=== PATIENT | male | born 1935 | race Caucasian/White ===

== ENCOUNTER 2016-10-10 23:01 | Inpatient (IN) | payer MEDICARE ==
[2016-10-10] MEDS: Nitroglycerin TAB 0.4 MG* 0.4 MG TAB SL ONE ×2 (23:15→23:38)
[2016-10-10] MEDS ORDERED: Aspirin Low Dose CHEW TAB* 81 MG PO ONE (23:17)
[2016-10-10] MEDS ORDERED: Aspirin Low Dose CHEW TAB* 81 MG ONE (23:17)
[2016-10-10] MEDS ORDERED: Nitroglycerin TAB 0.4 MG* 0.4 MG TAB ONE (23:17)
[2016-10-10] MEDS ORDERED: Heparin for STEMI(*) 5,000 UNITS/ML 1 ML VIAL IV ONE ×2 (23:17)
[2016-10-10] MEDS ORDERED: Heparin(*) 1000 UNIT/ML 10 ML VIAL CATH LAB IV ONE (23:29)
[2016-10-10] MEDS ORDERED: VERAPAMIL 2.5 MG/ML 4 ML VIAL ONE (23:29)
[2016-10-10] MEDS ORDERED: fentaNYL* 50 MCG/ML 2 ML VIAL (100 MCG VIAL) ONE (23:30)
[2016-10-10] MEDS ORDERED: Midazolam* 1 MG/ML 5 ML VIAL (5 MG) ONE (23:30)
[2016-10-10] MEDS ORDERED: Heparin 2 UNITS/ML IVPREMIX* 3,000 ML IV ONE (23:30)
[2016-10-10] MEDS ORDERED: nitroGLYCERIN DRIP* 250 ML ONE (23:30)
[2016-10-10] MEDS ORDERED: Iohexol 350 (CONTRAST) 200 ML MDV IV ONE (23:31)
[2016-10-10] MEDS ORDERED: Al Hydrox/Mg Hydrox/Simet LIQ* 30 ML UDC ONE (23:31)
[2016-10-10] MEDS ORDERED: Lidocaine 1% INJ* 10 MG/ML 30 ML SDV ONE ×2 (23:31→23:49)
[2016-10-10 23:38] LABS: Hematocrit 42 % (42-52); Hemoglobin 14.7 g/dl (14.0-18.0); Mean Corpuscular HGB Conc 35 g/dl (31-36); Mean Corpuscular Hemoglobin 31 pg (27-31); Mean Corpuscular Volume 90 fL (80-94); Mean Platelet Volume 8 um3 (7.4-10.4); Red Blood Count 4.71 10^6/ul (4.0-5.4); Red Cell Distribution Width 13 % (10.5-15); White Blood Count 11.1 10^3/ul (3.5-10.8)
[2016-10-10 23:43] LABS: Albumin 4.3 g/dL (3.2-5.2); BUN/Creatinine Ratio 16.3 (8-20); Calcium 9.3 mg/dL (8.6-10.3); EGFR African American 64.9 (>60); EGFR Non-African American 50.5 (>60); Globulin 3.4 g/dL (2-4); Total Bilirubin 0.6 mg/dL (0.2-1.0); Total Protein 7.7 g/dL (6.4-8.9)
[2016-10-10] MEDS ORDERED: Iodixanol* (CONTRAST) 320 MG/ML 100 ML SDV ONE (23:58)
[2016-10-11 00:01] LABS: Troponin I 16.34 ng/mL (<0.04)
[2016-10-11 00:23] LABS: PCO2 Arterial 31 mmHg (35-45)
[2016-10-11] MEDS ORDERED: Iodixanol* (CONTRAST) 320 MG/ML 100 ML SDV ONE (00:49)
[2016-10-11] MEDS ORDERED: Ticagrelor* 90 MG TAB PO ONE (01:00)
[2016-10-11] MEDS ORDERED: Norepinephrine 16MCG/ML IVPRE* 4,000 MCG/250 ML BAG IV ONE (01:10)
[2016-10-11] MEDS ORDERED: DOPamine 200 MG/250 ML IVPREM* 200 MG/250 ML ML IV ONE (01:10)
[2016-10-11] MEDS ORDERED: Nitroglycerin TAB 0.4 MG* 0.4 MG TAB SL PRN (01:12)
[2016-10-11] MEDS ORDERED: NS 0.9% 1000 ML* 1,000 ML IV SCH (01:15)
[2016-10-11] MEDS ORDERED: Acetaminophen TAB* 325 MG PO PRN (01:17)
[2016-10-11] MEDS ORDERED: Ondansetron INJ* 2 MG/ML VIAL IV PRN (01:17)
[2016-10-11] MEDS: Atorvastatin* 80 MG TAB PO SCH ×2 (01:45→17:07)
[2016-10-11 03:18] LABS: HDL Cholesterol 34.5 mg/dL
[2016-10-11 03:23] LABS: Troponin I 48.41 ng/mL (<0.04)
--- NOTE | 2016-10-11 04:58 | HP ---
HISTORY AND PHYSICAL: DATE OF ADMISSION: 10/10/16. PRIMARY: Cameron Kingsley MD HISTORY OF PRESENT ILLNESS: An 81-year-old male presenting to the ER with anterior ST elevation infarct. He is an excellent historian. He has no previous cardiac history except for an episode of syncope some 20 years ago. Apparently, evaluated by Dr. Guzman. He has hypertension, but takes the medication for it according to his . For the past 24 plus hours, he has had recurring episodes of precordial chest discomfort, which he describes like heartburn, these would typically last up to 30 minutes or somewhat longer and then resolve. He presented to the ER before midnight, a STEMI was called. 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 He is active, does yard work, has no limitation with activity. His reports that he has been having a chronic cough. He denies a history of diabetes, hyperlipidemia, tobacco use. PAST MEDICAL HISTORY: Hypertension, according to his he does not take antihypertensives, per his med summary, he is supposedly on losartan/ hydrochlorothiazide. PREHOSPITAL MEDICATIONS: To be reconciled by nursing staff. ALLERGIES: Penicillin. FAMILY HISTORY: Negative for premature coronary disease. 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 He is . REVIEW OF SYSTEMS: General: He is active. No weight loss, no fever. 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 GI: No history of peptic ulcer disease or bleeding. Circulatory: No claudication. Heme: No history of malignancy or anemia. Remainder all negative. PHYSICAL EXAMINATION VITAL SIGNS: On presentation in the ER, his blood pressure 141/94. He had a transient episode of hypotension into the 60s in the ER. Heart rate 70s to 80s , sinus rhythm. HEENT: Unremarkable without xanthelasma, scleral injection, or jaundice. EOMs grossly normal. Cranial nerves grossly intact. Mucosa moist. NECK: No JVD. Carotids palpable. No bruits. LUNGS: His lungs laterally clear. No rales or wheezes. He was extremely anxious, shaking, perseverating about the details such as early head start director of stents , etc. CARDIAC: Chest wall not tender. [place] not palpable. Normal heart sounds. No gallop, murmur, or rub. ABDOMEN: Soft, nontender. Aorta not palpable. Liver not palpable. Femoral pulses 2+. No bruits. EXTREMITIES: Radial pulses and pedal pulses normal. No cyanosis, clubbing, or edema. NEUROLOGIC: Very anxious. SKIN: Somewhat cool, not diaphoretic. DIAGNOSTIC STUDIES/LAB DATA: EKG at 2308 hours leftward axis, ST elevation in V1 through V5 with QS V1, V2, slight ST elevation in I and aVL consistent with extensive anterolateral ST elevation infarct. White count 11,100, normal hemoglobin and platelet count. Blood gas pH 7.38, PCO2 of 31, PO2 of 80, base deficit -5.8. BMP: Creatinine 1.35 with no prior, GFR 50.5. First troponin already at 16.34 consistent with late presentation. BNP elevated at 141. LDL 97. His potassium is normal at 4. Chest x-ray by my review shows no acute infiltrate. He has uncoiling of the thoracic aorta. IMPRESSION: 1. Extensive anterolateral ST elevation infarct with late presentation. He underwent emergent catheterization. 2. History of hypertension, apparently not taking any medications. 3. History of cough with unremarkable portable chest x-ray. [id number]/[facility] #: [id number] AD
--- NOTE | 2016-10-11 05:54 | ED ---
Oscar Shearer Rebecca, scribed for Jeffrey Chapman MD on 10/10/16 at 2319 . HPI Chest Pain - HPI Summary HPI Summary: Pt is an 81 y/o M who presents to ED c/o CP. Pain began 2 days ago while doing yard work and has been intermittent since onset. On triage, pain was noted to be 3/10 but upon evaluation, pain is 1/10. Pain was at its worst about 1 hour ago, at approximately 2200. Sx aggravated and alleviated by nothing. Yesterday, he took Naproxen but has not taken any ASA. PMHx HTN with no PMHx [place]. Is not on any blood thinners. - History of Current Complaint Chief Complaint: EDChestPainROMI Time Seen by Provider: 10/10/16 23:09 Hx Obtained From: Patient Onset/Duration: Started Days Ago - 2 days ago, Still Present, Worse Since - At its worst at 2200 Timing: Intermittent Current Severity: Mild Pain Intensity: 1 Pain Scale Used: 0-10 Numeric Aggravating Factor(s): Nothing Alleviating Factor(s): Nothing - Allergy/Home Medications Allergies/Adverse Reactions: Allergies Allergy/AdvReac Type Severity Reaction Status Date / Time Penicillins Allergy Intermediate Rash Verified 10/10/16 23:04 PMH/Surg Hx/FS Hx/Imm Hx Cardiovascular History: Reports: Hx Coronary Artery Disease - HYPERCHOLESTEROLEMIA-ON MEDICATION, Hx Hypertension - CONTROLLED WITH MEDICATION Denies: Hx Myocardial Infarction Musculoskeletal History: Reports: Hx Arthritis - MOST JOINTS Sensory History: Reports: Hx Cataracts - REMOVED BILATERALLY, Hx Contacts or Glasses - GLASSES Denies: Hx Hearing Aid Opthamlomology History: Reports: Hx Cataracts - REMOVED BILATERALLY, Hx Contacts or Glasses - GLASSES - Surgical History Surgery Procedure, Year, and Place: T&A 194. INGUINAL HERNIA 1982. ANKLE SPUR REMOVED . LEFT CARPAL TUNNEL 1997. BILAT CATARACTS 2010 [facility]. RIGHT CARPAL TUNNEL-02/2012-[facility] Hx Anesthesia Reactions: No Infectious Disease History: No Infectious Disease History: Denies: Traveled Outside the [place] in Last 30 Days - Family History Known Family History: Positive: Other - Abdominal CA, stroke - Social History Lives: With Family Substance Use Type: Reports: None Review of Systems Negative: Fever Positive: Chest Pain All Other Systems Reviewed And Are Negative: Yes Physical Exam Triage Information Reviewed: Yes Vital Signs On Initial Exam: Initial Vitals Temp Pulse Resp BP Pulse Ox 97 F 78 16 141/94 96 10/10/16 23:06 10/10/16 23:06 10/10/16 23:06 10/10/16 23:06 10/10/16 23:06 Vital Signs Reviewed: Yes Appearance: Positive: Ill-Appearing, Pain Distress - moderate Skin: Positive: Warm, Diaphoretic Head/Face: Positive: Normal Head/Face Inspection Eyes: Positive: JUD ENT: Positive: Hearing grossly normal Neck: Positive: Supple Respiratory/Lung Sounds: Positive: Clear to Auscultation, Breath Sounds Present Cardiovascular: Positive: RRR Abdomen Description: Positive: Nontender, Soft Bowel Sounds: Positive: Present Neurological: Positive: Sensory/Motor Intact, Alert, Oriented to Person Place, Time Psychiatric: Positive: Affect/Mood Appropriate Diagnostics - Vital Signs Vital Signs Temp Pulse Resp BP Pulse Ox 10/10/16 23:06 97 F 78 16 141/94 96 - Laboratory Lab Results: Lab Results 10/10/16 10/10/16 10/10/16 Range/Units 23:17 23:17 23:17 WBC (3.5-10.8) 10^3/ul RBC (4.0-5.4) 10^6/ul Hgb (14.0-18.0) g/dl Hct (42-52) % MCV (80-94) fL MCH (27-31) pg MCHC (31-36) g/dl RDW (10.5-15) % Plt Count (150-450) 10^3/ul MPV (7.4-10.4) um3 Neut % (Auto) (38-83) % Lymph % (Auto) (25-47) % Jefferson % (Auto) (1-9) % Eos % (Auto) (0-6) % Baso % (Auto) (0-2) % Absolute Neuts (auto) (1.5-7.7) 10^3/ul Absolute Lymphs (auto) (1.0-4.8) 10^3/ul Absolute Monos (auto) (0-0.8) 10^3/ul Absolute Eos (auto) (0-0.6) 10^3/ul Absolute Basos (auto) (0-0.2) 10^3/ul Absolute Nucleated RBC 10^3/ul Nucleated RBC % INR (Anticoag Therapy) 0.83 L (0.89-1.11) APTT 30.3 (26.0-36.3) seconds ABG pH (7.35-7.45) ABG pCO2 (35-45) mmHg ABG pO2 (80-100) mmHg ABG HCO3 (19-31) mmol/L ABG O2 Saturation (95-98) % ABG Base Excess (-2.0-2.0) Sodium 133 (133-145) mmol/L Potassium 4.0 (3.5-5.0) mmol/L Chloride 103 (101-111) mmol/L Carbon Dioxide 24 (22-32) mmol/L Anion Gap 6 (2-11) mmol/L BUN 22 (6-24) mg/dL Creatinine 1.35 H (0.67-1.17) mg/dL Est GFR ( Amer) 64.9 (>60) Est GFR (Non-Af Amer) 50.5 (>60) BUN/Creatinine Ratio 16.3 (8-20) Glucose 116 H (70-100) mg/dL Lactic Acid (0.5-2.0) mmol/L Calcium 9.3 (8.6-10.3) mg/dL Total Bilirubin 0.60 (0.2-1.0) mg/dL AST 116 H (13-39) U/L ALT 28 (7-52) U/L Alkaline Phosphatase 79 (34-104) U/L Total Creatine Kinase 741 H (10-223) U/L CK-MB (CK-2) 133.4 H (0.6-6.3) ng/mL Troponin I 16.34 H* (<0.04) ng/mL B-Natriuretic Peptide 141 H ( - 100) pg/mL Total Protein 7.7 (6.4-8.9) g/dL Albumin 4.3 (3.2-5.2) g/dL Globulin 3.4 (2-4) g/dL Albumin/Globulin Ratio 1.3 (1-3) LDL Cholesterol Direct 97 mg/dL 10/10/16 10/10/16 10/11/16 Range/Units 23:17 23:17 00:15 WBC 11.1 H (3.5-10.8) 10^3/ul RBC 4.71 (4.0-5.4) 10^6/ul Hgb 14.7 (14.0-18.0) g/dl Hct 42 (42-52) % MCV 90 (80-94) fL MCH 31 (27-31) pg MCHC 35 (31-36) g/dl RDW 13 (10.5-15) % Plt Count 215 (150-450) 10^3/ul MPV 8 (7.4-10.4) um3 Neut % (Auto) 66.7 (38-83) % Lymph % (Auto) 19.5 L (25-47) % Jefferson % (Auto) 9.0 (1-9) % Eos % (Auto) 4.3 (0-6) % Baso % (Auto) 0.5 (0-2) % Absolute Neuts (auto) 7.4 (1.5-7.7) 10^3/ul Absolute Lymphs (auto) 2.2 (1.0-4.8) 10^3/ul Absolute Monos (auto) 1.0 H (0-0.8) 10^3/ul Absolute Eos (auto) 0.5 (0-0.6) 10^3/ul Absolute Basos (auto) 0.1 (0-0.2) 10^3/ul Absolute Nucleated RBC 0 10^3/ul Nucleated RBC % 0 INR (Anticoag Therapy) (0.89-1.11) APTT (26.0-36.3) seconds ABG pH 7.38 (7.35-7.45) ABG pCO2 31 L (35-45) mmHg ABG pO2 80 (80-100) mmHg ABG HCO3 20.4 (19-31) mmol/L ABG O2 Saturation 98.0 (95-98) % ABG Base Excess -5.8 L (-2.0-2.0) Sodium (133-145) mmol/L Potassium (3.5-5.0) mmol/L Chloride (101-111) mmol/L Carbon Dioxide (22-32) mmol/L Anion Gap (2-11) mmol/L BUN (6-24) mg/dL Creatinine (0.67-1.17) mg/dL Est GFR ( Amer) (>60) Est GFR (Non-Af Amer) (>60) BUN/Creatinine Ratio (8-20) Glucose (70-100) mg/dL Lactic Acid 0.9 (0.5-2.0) mmol/L Calcium (8.6-10.3) mg/dL Total Bilirubin (0.2-1.0) mg/dL AST (13-39) U/L ALT (7-52) U/L Alkaline Phosphatase (34-104) U/L Total Creatine Kinase (10-223) U/L CK-MB (CK-2) (0.6-6.3) ng/mL Troponin I (<0.04) ng/mL B-Natriuretic Peptide ( - 100) pg/mL Total Protein (6.4-8.9) g/dL Albumin (3.2-5.2) g/dL Globulin (2-4) g/dL Albumin/Globulin Ratio (1-3) LDL Cholesterol Direct mg/dL Result Diagrams: 10/10/16 23:17 10/10/16 23:17 Lab Statement: Any lab studies that have been ordered have been reviewed, and results considered in the medical decision making process. - Radiology CXR Xray Interpretation: No Acute Changes Radiology Interpretation Completed By: ED Physician - EKG 2308 Cardiac Rate: NL - 71 bpm EKG Rhythm: Sinus Rhythm EKG Interpretation: Acute anterior wall [place] Re-Evaluation - Re-Evaluation First Eval Re-Evaluation Time: 23:28 Comment: Explaining to the pt the procedure and answering questions. Chest Pain Course/Dx - Course Assessment/Plan: Pt is an 81 y/o M who presents to ED c/o CP. Pain began 2 days ago while doing yard work and has been intermittent since onset. On triage, pain was noted to be 3/10 but upon evaluation, pain is 1/10. Pain was at its worst about 1 hour ago, at approximately 2200. Sx aggravated and alleviated by nothing. Yesterday, he took Naproxen but has not taken any ASA. PMHx HTN with no PMHx [place]. Is not on any blood thinners. EKG is sinus rhythm with an acute anterior wall [place]. CXR is negative, as read by ED physician. STEMI code called at 2315. In the ED course pt was adminstered Heparin, NTG and ASA. Discussed care of pt with Dr. Gonzalez, making him aware of the pt, accepts and he will evaluate the pt in the ED. Pt will be admitted with Dx of STEMI. He understands and agrees. - Diagnoses Provider Diagnoses: STEMI (ST elevation myocardial infarction) During the Visit The Following Alert/Code Occurred: STEMI - Called at 2315 - Provider Notifications Discussed Care Of Patient With: Hanna Gonzalez Time Discussed With Above Provider: 23:20 Instructed by Provider To: Admit As Inpatient - Made him aware of the pt, accepts and will evaluate the pt in the ED - Critical Care Time Critical Care Time: 30-74 min Discharge - Discharge Plan Condition: Fair Disposition: ADMITTED TO [facility] The documentation as recorded by the Oscar sin Rebecca accurately reflects the service I personally performed and the decisions made by me, Jeffrey Chapman MD.
--- NOTE | 2016-10-11 07:53 | RAD ---
Indication: Chest pain. Single frontal view of the chest performed at 2325 hours was reviewed. No prior study is available for comparison. No mediastinal shift is noted. Heart is of normal size and configuration. Lung carreon appear clear. IMPRESSION: NO ACTIVE CARDIOPULMONARY DISEASE IS NOTED.
[2016-10-11 08:45] LABS: Troponin I 35.73 ng/mL (<0.04)
[2016-10-11] MEDS: Aspirin Low Dose CHEW TAB* 81 MG PO SCH (08:50)
[2016-10-11] MEDS: Metoprolol Tartrate TAB* 25 MG PO SCH ×2 (08:52→20:34)
[2016-10-11] MEDS: Ticagrelor* 90 MG TAB PO SCH ×2 (08:53→20:30)
[2016-10-11] MEDS: Captopril TAB* 12.5 MG PO SCH ×3 (08:57→20:30)
[2016-10-11 14:22] LABS: Troponin I 23.9 ng/mL (<0.04)
[2016-10-12 06:30] LABS: BUN/Creatinine Ratio 15.7 (8-20); Calcium 9.2 mg/dL (8.6-10.3); EGFR African American 69.7 (>60); EGFR Non-African American 54.2 (>60); Potassium 4.4 mmol/L (3.5-5.0)
[2016-10-12 07:33] LABS: Hematocrit 38 % (42-52); Mean Corpuscular HGB Conc 34 g/dl (31-36); Mean Corpuscular Hemoglobin 31 pg (27-31); Mean Corpuscular Volume 90 fL (80-94); Mean Platelet Volume 9 um3 (7.4-10.4); Red Blood Count 4.18 10^6/ul (4.0-5.4); Red Cell Distribution Width 13 % (10.5-15); White Blood Count 7.3 10^3/ul (3.5-10.8)
[2016-10-12] MEDS: Metoprolol Tartrate TAB* 25 MG PO SCH ×2 (09:31→20:54)
[2016-10-12] MEDS: Captopril TAB* 12.5 MG PO SCH ×3 (09:31→20:54)
[2016-10-12] MEDS: Ticagrelor* 90 MG TAB PO SCH ×2 (09:31→20:55)
[2016-10-12] MEDS: Aspirin Low Dose CHEW TAB* 81 MG PO SCH (09:31)
--- NOTE | 2016-10-12 12:42 | ECHO ---
Patient: NICOLÁS OTERO [facility] Rec#: [id number] : 1935 Date: 10/12/2016 Age: 81y Height: 170.18 cm / 67.0 in Weight: 74.84 kg / 164.9 lbs Sex: M BSA: 1.86 Room#: ICU 2 Admit Date#: 10/11/2016 Type: Inpatient Referring: Hanna Gonzalez MD Reading: Dolly Infante MD Silk Folder: Ragini Caicedo,RDCS,RDMS CC: Cameron Kingsley MD Transthoracic Echocardiogram Indication: Acute Myocardial Infacrtion BP: 116/69 HR: 62 Rhythm: NSR Findings History: S/P STEMI, PCI, HTN, HLD Technical Comments: The study quality is good. Completed 1215 Left Ventricle: The left ventricular chamber size is normal. Mild to moderate concentric left ventricular hypertrophy is observed. There is a focal wall motion abnormality present.The apex is severely hypokinetic and akinetic extending 1/4 - 1/3 up the anterior and septal workman. The estimated ejection fraction is 45-50%. Abnormal left ventricular diastolic filling is observed, consistent with impaired relaxation. Left Atrium: The left atrium is mildly dilated. Right Ventricle: The right ventricular chamber size and systolic function are within normal limits. Right Atrium: The right atrial cavity size is normal. Aortic Valve: The aortic valve is trileaflet. The aortic valve leaflets are mildly thickened. There is mild aortic regurgitation. There is borderline aortic stenosis present. The mean gradient of the aortic valve is 7.5 mmHg. The aortic valve area, by peak velocities, is calculated at 1.8 cm2. Mitral Valve: The mitral valve leaflets appear normal. There is a trace of mitral regurgitation. There is no evidence of mitral stenosis. Tricuspid Valve: The tricuspid valve leaflets are normal. There is trace to mild tricuspid regurgitation. The right ventricular systolic pressure is estimated at 32 mmHg. No pulmonary hypertension is noted. Pulmonic Valve: The pulmonic valve structure is not well visualized. Pericardium: There is no significant pericardial effusion. Aorta: There is moderate dilatation of the ascending aorta. There is no dilatation of the aortic arch. There is no dilation of the aortic root. Pulmonary Artery: The main pulmonary artery is not well visualized. Venous: The inferior vena cava appears normal in size. There is a greater than 50% respiratory change in the inferior vena cava dimension. Conclusions Mild to moderate concentric left ventricular hypertrophy is observed. There is a focal wall motion abnormality present.The apex is severely hypokinetic and akinetic extending 1/4 - 1/3 up the anterior and septal workman. The estimated ejection fraction is 45-50%. Abnormal left ventricular diastolic filling is observed, consistent with impaired relaxation. The right ventricular chamber size and systolic function are within normal limits. The aortic valve leaflets are mildly thickened. There is borderline aortic stenosis present: the mean gradient of the aortic valve is 7.5 mmHg, LEAH by peak velocity is 1.8 cm2. There is mild aortic regurgitation. There is a trace of mitral regurgitation. There is trace to mild tricuspid regurgitation. The right ventricular systolic pressure is estimated at 32 mmHg. There is moderate dilatation of the ascending aorta: 4.1 cm. No prior echo to compare. Measurements Name Value Normal Range RVIDd (AP) 2D 2.7 cm (0.9 - 2.6) RVDdMajor (2D) 2.9 cm (2.2 - 4.4) RAd ISD 4CH 4.3 cm (3.4 - 4.9) RA (A4C)W 3.6 cm (2.9 - 4.6) IVSd (2D) 1.3 cm (0.6 - 1) LVPWd (2D) 1.4 cm (0.6 - 1) LVIDd (2D) 4.5 cm (3.6 - 5.4) LVIDs (2D) 2.7 cm - LV FS (2D) 40 % (25 - 45) Aortic Annulus 2.1 cm (1.4 - 2.6) Ao root diameter (2D) 2.9 cm (2.1 - 3.5) Ascending Ao 4.1 cm (2.1 - 3.4) Aortic arch 2.8 cm (1.8 - 3.4) LA dimension (AP) 2D 3.9 cm (2.3 - 3.8) LAd ISD 4CH 4.5 cm (2.9 - 5.3) LA ISD 4CH W 3.7 cm (2.5 - 4.5) Name Value Normal Range LA ESV SP 4CH (A/L) 60.75 ml - LA ESV SP 2CH (A/L) 80.96 ml - LA ESV BP (A/L) 70.86 ml - LA ESV BP (A/L) index 38 ml/m2 - LA ESV SP 4CH (MOD) 55.08 ml - LA ESV SP 2CH (MOD) 75.9 ml - Name Value Normal Range MV E-wave Vmax 0.5 m/sec - MV deceleration time 123 msec - MV A-wave Vmax 0.8 m/sec - MV E:A ratio 0.6 ratio - P. vein S-wave Vmax 0.6 m/sec - P. vein D-wave Vmax 0.4 m/sec - P. vein S:D Vmax ratio 1.4 ratio - P. vein A-wave duration 131.5 msec - LV septal e' Vmax 0.05 m/sec - LV lateral e' Vmax 0.04 m/sec - LV E:e' septal ratio 10 ratio - LV E:e' lateral ratio 12.5 ratio - Name Value Normal Range AV Vmax 1.9 m/sec - AV VTI 40.4 cm - AV peak gradient 14 mmHg - AV mean gradient 7.5 mmHg - LVOT diameter 2 cm - LVOT Vmax 1.1 m/sec - LVOT VTI 20.6 cm - LVOT peak gradient 5 mmHg - LVOT mean gradient 2.4 mmHg - DOI (VTI) 0.5 ratio - LEAH (continuity Vmax) 1.8 cm2 - LEAH (continuity VTI) 1.6 cm2 - AR PHT 761.78 msec - AR peak gradient 40.19 mmHg - DARSHAN Vmax 0.7 m/sec - Name Value Normal Range TR Vmax 2.7 m/sec - TR peak gradient 29 mmHg - RAP 3 mmHg - RVSP 32 mmHg - IVC diameter 1.4 cm - Name Value Normal Range PV Vmax 0.6 m/sec - PV peak gradient 1.4 mmHg -
[2016-10-12] MEDS: Atorvastatin* 80 MG TAB PO SCH (17:09)
[2016-10-13] MEDS: Aspirin Low Dose CHEW TAB* 81 MG PO SCH (08:11)
[2016-10-13] MEDS: Captopril TAB* 12.5 MG PO SCH ×3 (08:11→20:26)
[2016-10-13] MEDS: Ticagrelor* 90 MG TAB PO SCH ×2 (08:11→20:26)
[2016-10-13] MEDS: Metoprolol Tartrate TAB* 25 MG PO SCH ×2 (08:11→20:26)
[2016-10-13 09:46] LABS: BUN/Creatinine Ratio 16.3 (8-20); Calcium 9.5 mg/dL (8.6-10.3); EGFR African American 64.9 (>60); EGFR Non-African American 50.5 (>60); Potassium 4.4 mmol/L (3.5-5.0)
[2016-10-13] MEDS: Atorvastatin* 80 MG TAB PO SCH (17:28)
[2016-10-14 05:58] LABS: BUN/Creatinine Ratio 18.6 (8-20); Calcium 9.1 mg/dL (8.6-10.3); EGFR African American 62.2 (>60); EGFR Non-African American 48.4 (>60); Potassium 4.1 mmol/L (3.5-5.0)
[2016-10-14] MEDS: Lisinopril TAB* 5 MG PO SCH (08:21)
[2016-10-14] MEDS: Metoprolol Tartrate TAB* 25 MG PO SCH ×2 (08:21→20:15)
[2016-10-14] MEDS: Ticagrelor* 90 MG TAB PO SCH ×2 (08:21→20:15)
[2016-10-14] MEDS: Aspirin Low Dose CHEW TAB* 81 MG PO SCH (08:21)
[2016-10-14 10:32] LABS: BUN/Creatinine Ratio 17.4 (8-20); Calcium 9.7 mg/dL (8.6-10.3); EGFR African American 60.3 (>60); EGFR Non-African American 46.9 (>60)
--- NOTE | 2016-10-14 11:31 | PTEDU ---
Patient Name: NICOLÁS OTERO SHANNA, JOHN selected video: About Your Heart Attack to view on 10/14/2016 at 11:30:05 AM from [id number]
--- NOTE | 2016-10-14 11:50 | PTEDU ---
Patient Name: NICOLÁS OTERO SHANNA, JOHN selected video: Heart Attack to view on 10/14/2016 at 11:49:44 AM from [id number]
--- NOTE | 2016-10-14 13:43 | PTEDU ---
Patient Name: NICOLÁS OTERO SHANNA, JOHN selected video: Stroke to view on 10/14/2016 at 1:41:21 PM from [email or web address]
[2016-10-14] MEDS: Atorvastatin* 80 MG TAB PO SCH (18:00)
[2016-10-15] MEDS: Aspirin Low Dose CHEW TAB* 81 MG PO SCH (08:37)
[2016-10-15] MEDS: Lisinopril TAB* 5 MG PO SCH (08:38)
[2016-10-15] MEDS: Metoprolol Tartrate TAB* 25 MG PO SCH (08:38)
[2016-10-15] MEDS: Ticagrelor* 90 MG TAB PO SCH (08:39)
[2016-10-15 08:45] VITALS: BP 126/75
[2016-10-15 09:51] LABS: BUN/Creatinine Ratio 22.5 (8-20); Calcium 9.6 mg/dL (8.6-10.3); EGFR African American 63.3 (>60); EGFR Non-African American 49.2 (>60); Potassium 3.8 mmol/L (3.5-5.0)
--- NOTE | 2016-10-15 17:37 | DS ---
CC: Dr. Hanna Gonzalez; Dr. Cameron Kingsley. DISCHARGE SUMMARY: DATE OF ADMISSION: DATE OF DISCHARGE: FINAL DIAGNOSIS: Acute late-presentation anterior wall myocardial infarction. SECONDARY DIAGNOSES: 1. History of hypertension 2. Coronary artery disease. HOSPITAL COURSE: The patient is a pleasant 81-year-old white male who presented to the emergency ro om at [facility] on 10/10/16 in the throes of an acute myocardial infarction involving th e anterior wall. Please refer to Dr. Hanna Gonzalez' H and P for complete details. He was taken maryam rgently to the cardiovascular laboratory where cardiac catheterization was subsequently performed, r evealing 100% occlusion of the mid circumflex with an 80% lesion and a third diagonal branch small c aliber. The right coronary artery was large with scattered nonobstructive plaques. The circumflex had a mid 60% narrowing. There was a short small posterior left ventricular branch. The patient un derwent intervention into the left anterior descending artery with placement of a 2.25 x 12 mm long Synergy drug-eluting stent with good results. Over the course of the hospitalization, he was placed on beta-jasmin therapy, ARIEL inhibition therap y, aspirin therapy and Brilinta. Echocardiogram was performed on 10/12/16, report demonstrating sev ere apical hypo to akinesis extending a quarter to third the way up the anterior and septal workman wi th an estimated ejection fraction however of 45% to 50%. There was [id number] concentric left ventricular hypertrophy. There was borderline aortic stenosis with the valve area estimated at 1.8 cm sq. There was mild aortic regurgitation and odtvd-[id number] mitral regurgitation, kzepo-qe-aalf t ricuspid regurgitation with a pulmonary systolic pressure estimated at 32 mmHg. There was moderate dilatation of the ascending aorta at 4.1 cm. He was up and around about walking in the halls and was stable with no recurrent chest, jaw or arm d iscomfort. No evidence of congestive heart failure. One thing of note during the course of the hos pitalization, it was noted that his creatinine went from 1.27 and slowly increased to 1.44 on the y of discharge. The patient was given a prescription to get a BMP checked on Monday, October 17 with a copy to Dr. Cameron Kingsley and to Dr. Hanna Gonzalez to make sure his kidney function remains s table. His cardiac enzymes were noted on admission to be elevated with a total CPK of 741 and MB of 133, troponin of 16.34. From there, the troponin did peak on the next sample, the troponin peaked at 48.4 and CPK peaked at 763, but the MBs were in the downward fashion from that point. MEDICATIONS ON DISCHARGE: Included: 1. Baby aspirin once a day. 2. Atorvastatin 80 mg a day. 3. Lisinopril 2.5 mg a day. 4. Metoprolol tartrate 25 mg twice a day. 5. Nitroglycerin p.r.n. 6. Ticagrelor 90 mg twice a day. Of note, his home medications were restarted with respect to his coenzyme Q10, multivitamins, flax s eed and vitamin B. of note, I did not restart his finasteride 5 mg because of his blood pressure at times dipping under 100. That will need to be addressed at followup appointment with both Dr. Billie good and Dr. Kingsley. PHYSICAL EXAMINATION: On the day of discharge revealed the patient to be stable. Vital signs reveal ed blood pressure 120/70, pulse in the 60s, respirations 17, O2 saturation 97% to 100% on room air. Neck was supple. No increased JVP. Carotid with good upstroke and volume. I did not appreciate b ruits or transmitted murmur. Conjunctivae were pink. Sclerae are clear. Lungs reveal no accessory muscle usage. There was good excursion. Lungs were clear to A and P. Heart revealed no visible he aves. No palpable heaves or thrills. Normal S1 and S2 with no significant systolic or diastolic mu rmur. Abdomen was soft and nontender. Extremities without edema. The right radial artery was well healed. Neuro: The patient was alert and oriented with normal mentation. Musculoskeletal: The pat ient with normal gait. Psychiatric: The patient with normal affect. The last EKG of record was from 10/13/16 which demonstrated the anterior wall myocardial infarction with mild persistent ST elevation in V2, V3, and minimally in V4 with biphasic T waves developing. There was R-wave preservation with no Q-wave in V3 through 6. There was a small R-wave in V2. The p atient will be seen in follow up by Dr. Hanna Gonzalez on 10/20/16 at 2:40 p.m. The patient received a cardiac education booklet and his stent card which will be reviewed with Dr. Gonzalez in the office. All questions were answered to the patient's satisfaction. [id number]/[facility] #: [id number]
== END 2016-10-15 11:25 | disposition home or self-care (01) | DRG 247 ==
LOC: ED 23:01 → CHICATH 10-11 → ICU 10-11 01:25 → MEDTELE 10-13 11:44
PROVIDERS: ADMIT Internal Medicine Cardiovascular Disease; ATTEND Internal Medicine Cardiovascular Disease
PROC: 027034Z Dilation of Coronary Artery, One Artery with Drug-eluting Intraluminal Device, Percutaneous Approach (ICD-10-PCS; 2016-10-11)
PROC: B2111ZZ Fluoroscopy of Multiple Coronary Arteries using Low Osmolar Contrast (ICD-10-PCS; 2016-10-11)
PROC: 4A023N7 Measurement of Cardiac Sampling and Pressure, Left Heart, Percutaneous Approach (ICD-10-PCS; principal; 2016-10-11 07:00)
DX: I21.09 ST elevation (STEMI) myocardial infarction involving other coronary artery of anterior wall (principal); I08.3 Combined rheumatic disorders of mitral, aortic and tricuspid valves; I10 Essential (primary) hypertension; I25.10 Atherosclerotic heart disease of native coronary artery without angina pectoris; I77.819 Aortic ectasia, unspecified site; Z79.82 Long term (current) use of aspirin; Z88.0 Allergy status to penicillin; E78.00 Pure hypercholesterolemia, unspecified; M13.89 Other specified arthritis, multiple sites; Z98.42 Cataract extraction status, left eye; Z98.41 Cataract extraction status, right eye; Z80.0 Family history of malignant neoplasm of digestive organs; Z82.3 Family history of stroke
CPT/HCPCS: 36415; 71010; 80048; 80053; 80061; 82550; 82553; 82803; 83036; 83605; 83721; 83880; 84484; 85025; 85610; 85730; 87641; 93005; 93306; 99156; 99157; A9270-GY; C1725; C1769; C1876; C1887; C9606-LD; J1265; J1644; J2001; J2250; J3010